=== PATIENT | male | born 1985 | race Caucasian/White ===

== ENCOUNTER 2020-04-11 07:53 | Day surgery (SDC) | payer OTHER ==
[~2020-04-11 07:53] MED LIST: CEFAZOLIN 2 GM/D5W RTU 2 GM/50 ML RTUPB IV PRN; DEXAMETHASONE SOD PHOS INJ 10 MG/1 ML VIAL ONE; FENTANYL CITRATE INJ/PF 100 MCG/2 ML AMPUL ONE; MIDAZOLAM 2 MG/2 ML INJ ONE; ONDANSETRON HCL INJ/PF 4 MG/2 ML SDV ONE; PROPOFOL INJ 200 MG/20 ML VIAL IV ONE; SUCCINYLCHOLINE CHLORIDE INJ 200 MG/10 ML VIAL ONE
[2020-04-11] MEDS ORDERED: EPINEPHRINE INJ/PF 1 MG/1 ML AMPULE ONE (08:41)
[2020-04-11] MEDS ORDERED: OXYMETAZOLINE HCL 0.05% NASAL SPRAY 15 ML BOTTLE ONE (08:41)
[2020-04-11] MEDS ORDERED: COCAINE HCL 4% TOPICAL SOLN 4 ML ONE (08:41)
[2020-04-11] MEDS ORDERED: LIDOCAINE 2%/EPINEPHRINE INJ 1.7 ML CARTRIDGE ONE (08:42)
[2020-04-11] MEDS ORDERED: CIPROFLOXACIN HCL/FLUOCINOLONE 0.3%/0.025% OTIC ONE ×3 (08:47→10:47)
[2020-04-11] MEDS ORDERED: BACITRACIN ZINC OINTMENT 15 GM ONE (10:58)
--- NOTE | 2020-04-11 11:46 | Operative Report ---
Operative Report-[facility] Operative Report: Date: 11 April 2020 History: 34-year-old male with a large perforation of the left tympanic membrane and left eustachian tube dysfunction. Patient presents today for a left type I tympanoplasty and balloon dilation of the left eustachian tube. Informed consent was obtained from the patient. Pre-operative diagnosis: 1. Tympanic membrane perforation, left ear 2. Eustachian tube dysfunction, left Post operative diagnosis: Same as above Procedure: 1. Type I tympanoplasty, left ear [CPT: 19329] 2. Eustachian tube balloon dilation/reconstruction nasopharynx [CPT = 34812], left 3. Rigid nasal endoscopy, left Surgeon: Abdi New MD, FACS, [facility] Anesthesia: General via endotracheal intubation. Procedure: After receiving informed consent from the patient, the patient was transported to the operating room and placed supine on the operating room table. After successful induction and intubation by anesthesia cottonoids saturated with 4% cocaine were placed into left for approximately 5 minutes. They were then removed. Nasal septum and inferior turbinate were injected with 2% Xylocaine with 100,000 epinephrine. The cottonoids were placed back into the nasal cavity. The patient was then prepped and draped in sterile fashion. Attention was then directed to the eustachian tube balloon dilation portion of the procedure. The cottonoids were removed from the nasal cavity. A rigid 30 degree nasal endoscope along with the AREA eustachian tube balloon dilation system was inserted in the left nasal cavity. The torus tubarius was visualized. Under endoscopic guidance the balloon was inserted into the left eustachian tube lumen. The balloon was then insufflated to 12 atmospheric pressure for 2 minutes. The balloon was then let down and removed from the eustachian tube lumen. The endoscope and balloon system was then removed from the nasal cavity. Attention was then directed to the tympanoplasty portion of the procedure. The left ear was turned superiorly and the microscope was brought into the field. Properly sized speculum was placed into the external auditory canal and this was secured using a speculum hill that was attached to the bed. The perforation was identified and using a Telles pick a small portion of the rim of the perforation was incised and removed to freshen the edges. The middle ear was then explored and the mucosa appeared healthy without evidence of disease or keratoma. Absorbable packing was then placed into the middle ear space. The grafting material, which was an allograft, specifically bio design otologic graft from [employer] was placed into the middle ear space on top of the packing as an underlay graft technique. The edges of the perforation were inspected and the graft encompassed the entire perforation. A second, larger, allograft was then placed on top of the graft/perforation area as an overlay alessandro hnique. Essentially a sandwich type grafting was used to close this perforation. Inspection revealed that the second graft covered the entirety of the perforation/graft area. Absorbable packing was then carefully placed over the graft and placement of the packing continued to fill the external auditory canal. Bacitracin and a cottonball were then placed into the external auditory canal. A [place] dressing was placed. The patient was then given anesthesia who successfully extubated the patient without any complications. Estimated blood loss: Minimal Fluids: 800 mL The patient was then transported to the Post Anesthesia Care Unit in stable condition with spontaneous respiration. No complication.
== END 2020-04-11 12:19 | disposition home or self-care (01) ==
LOC: SC 07:53
PROVIDERS: ATTEND Otolaryngology
DX: H72.92 Unspecified perforation of tympanic membrane, left ear (principal); H69.83 Other specified disorders of Eustachian tube, bilateral; H93.13 Tinnitus, bilateral; H91.93 Unspecified hearing loss, bilateral; M26.609 Unspecified temporomandibular joint disorder, unspecified side; Z72.0 Tobacco use; Z01.812 Encounter for preprocedural laboratory examination; Z20.828 Contact with and (suspected) exposure to other viral communicable diseases
CPT/HCPCS: 87635; 69631; 42950; J2250; J3490 ×4; C9046; J3010; J0330; J2405; J2704; J1100; J0690; C9803; 160; J0171